=== PATIENT | male | born 1950 | race Two or more races ===

== ENCOUNTER 2019-02-04 18:09 | Emergency (ER) | payer MEDICARE ==
[~2019-02-04] VITALS: Ht 175.3 cm; Wt 97.5 kg
[2019-02-04] MEDS ORDERED: IV NORMAL SALINE 1000 ML BAG IV ONE (19:00)
[2019-02-04] MEDS ORDERED: IPRATROPIUM BROMIDE 0.5 MG/2.5 ML NEBU NEB ONE (19:00)
[2019-02-04] MEDS ORDERED: ALBUTEROL SULFATE 2.5 MG/3 ML NEBU NEB ONE (19:00)
[2019-02-04] MEDS ORDERED: ACETAMINOPHEN ES 500 MG TABLET PO ONE (19:00)
[2019-02-04] MEDS ORDERED: ALBUTEROL SULFATE 2.5 MG/3 ML NEBU ONE (19:05)
[2019-02-04] MEDS ORDERED: IPRATROPIUM BROMIDE 0.5 MG/2.5 ML NEBU ONE (19:05)
--- NOTE | 2019-02-04 19:09 | NUR ---
PATIENT WAS SEEN BY . HAND OFF REPORT GIVEN TO CHARLEEN PIERSON
--- NOTE | 2019-02-04 19:10 | NUR ---
Received report from Lexii PIERSON, assumed care of pt., pt. resting in bed, at bedside,
[2019-02-04] MEDS ORDERED: IBUPROFEN 800 MG TABLET PO ONE (19:15)
--- NOTE | 2019-02-04 19:20 | NUR ---
RT at bedside for breathing tx, Rad. tech. at bedside for CXR
[2019-02-04] MEDS ORDERED: IBUPROFEN 800 MG TABLET ONE (19:25)
[2019-02-04 19:29] LABS: BASOPHILS % (AUTO) 0.5 % (0.0-2.0); EOSINOPHILS # (AUTO) 0.1 K/uL (0.0-0.7); EOSINOPHILS % (AUTO) 1.8 % (0.0-7.0); HEMATOCRIT 44.8 % (36.7-47.1); HEMOGLOBIN 14.9 g/dL (12.5-16.3); LYMPHOCYTES # (AUTO) 0.9 K/uL (20.0-40.0); LYMPHOCYTES % (AUTO) 15.7 % (20.5-51.5); MEAN CORPUSCULAR HEMOGLOBIN 30.8 uug (23.8-33.4); MEAN CORPUSCULAR HGB CONC 33 g/dL (32.5-36.3); MEAN CORPUSCULAR VOLUME 92.8 fL (73.0-96.2); MONOCYTES # (AUTO) 0.9 K/uL (2.0-10.0); MONOCYTES % (AUTO) 15.5 % (0.0-11.0); NEUTROPHILS % (AUTO) 66.5 % (38.5-71.5); PLATELET COUNT (AUTO) 152 K/uL (152-348); RED BLOOD CELL COUNT(AUTO) 4.83 MIL/uL (4.06-5.63)
[2019-02-04 19:37] LABS: POTASSIUM 4.1 mmol/L (3.5-5.1)
[2019-02-04 19:45] LABS: BILIRUBIN,DIRECT 0.2 mg/dL (0.0-0.2); BILIRUBIN,TOTAL 1.1 mg/dL (0.2-1.0); TOTAL PROTEIN, SERUM 7.6 g/dL (6.4-8.2)
--- NOTE | 2019-02-04 19:55 | NUR ---
Urine specimen collected and sent to lab,
[2019-02-04 19:56] LABS: *BILIRUBIN,URIN NEGATIVE (NEGATIVE); *BLOOD, URINE NEGATIVE (NEGATIVE); *CLARITY,URINE CLEAR (CLEAR); *COLOR,URINE YELLOW (YELLOW); *KETONES,URINE NEGATIVE (NEGATIVE); *UROBILINOGEN,URINE 0.2 E.U./dl (NORMAL); LEUKOCYTE ESTERASE ,URINE NEGATIVE (NEGATIVE); NITRITE, URINE NEGATIVE (NEGATIVE); UGLUCOSE NEGATIVE (NEGATIVE)
[2019-02-04 19:57] LABS: BAND % (MANUAL) 7 % (0-10); NEUTROPHILS % (MANUAL) 61 % (42-75)
[2019-02-04 19:58] LABS: EOSINOPHILS % (MANUAL) 2 % (0-8); LYMPHOCYTES % (MANUAL) 16 % (20-40); MONOCYTES % (MANUAL) 14 % (2-10)
[2019-02-04 20:03] LABS: MUCUS,URINE FEW /LPF (0-FEW); RBC,URINE 0-3 /HPF (0-3); WBC,URINE NONE SEEN /HPF (0-3)
--- NOTE | 2019-02-04 20:37 | NUR ---
Patient discharged to home in stable conditon. Written and verbal after care instructions given. Patient verbalizes understanding of instructions. Pt. d/c w/ prescription per MD order, d/c papers signed, all belongings w/ pt., ID band removed, ambulated off unit w/ steady gait accompanied by , VSS, NAD
== END 2019-02-04 20:40 | disposition home or self-care (01) ==
LOC: ER 18:09
DX: J32.9 Chronic sinusitis, unspecified (principal); E78.5 Hyperlipidemia, unspecified; J45.909 Unspecified asthma, uncomplicated
CPT/HCPCS: 36415; 71045; 83605; 85025; 87040; 87086; 93005; A4663; J3590; J7030

== ENCOUNTER 2022-12-11 19:42 | Emergency (ER) | payer MEDICARE ==
[~2022-12-11] VITALS: Ht 175.3 cm; Wt 95.3 kg
--- NOTE | 2022-12-11 19:52 | NUR ---
Lab at bedside.
--- NOTE | 2022-12-11 19:52 | NUR ---
Chest Xray at bedside.
[2022-12-11 19:59] LABS: *BILIRUBIN,URIN NEGATIVE (NEGATIVE); *CLARITY,URINE CLEAR (CLEAR); *COLOR,URINE LIGHT YELLOW (YELLOW); *KETONES,URINE NEGATIVE (NEGATIVE); *UROBILINOGEN,URINE 0.2 E.U./dl (NORMAL); LEUKOCYTE ESTERASE ,URINE NEGATIVE (NEGATIVE); NITRITE, URINE NEGATIVE (NEGATIVE); PH,URINE 5.5 (5.0-8.0); UGLUCOSE NEGATIVE (NEGATIVE)
[2022-12-11 20:06] LABS: HEMATOCRIT 44.5 % (36.7-47.1); MEAN CORPUSCULAR HEMOGLOBIN 31.9 uug (23.8-33.4); MEAN CORPUSCULAR VOLUME 93.4 fL (73.0-96.2); PLATELET COUNT (AUTO) 224 K/uL (152-348)
[2022-12-11 20:17] LABS: *AMPHETAMINE, URINE NEGATIVE (NEGATIVE); *CANNABINOID, URINE NEGATIVE (NEGATIVE); *COCCAINE, URINE NEGATIVE (NEGATIVE); *PHENCYCLIDINE SCREEN,URINE NEGATIVE (NEGATIVE)
[2022-12-11 20:18] LABS: CREATININE 0.9 mg/dL (0.6-1.3); POTASSIUM 4.3 mmol/L (3.5-5.1)
[2022-12-11 20:24] LABS: *BLOOD, URINE TRACE (NEGATIVE)
[2022-12-11 20:31] LABS: BILIRUBIN,TOTAL 0.7 mg/dL (0.2-1.0); TOTAL PROTEIN, SERUM 7.7 g/dL (6.4-8.2)
--- NOTE | 2022-12-11 20:44 | NUR ---
Patient ambulated to the bathroom indepedently. Activity tolerated well.
[2022-12-11] MEDS ORDERED: LORAZEPAM 1 MG TABLET ONE (21:15)
[2022-12-11] MEDS ORDERED: LORAZEPAM 0.5 MG TABLET PO ONE (21:15)
--- NOTE | 2022-12-11 22:19 | NUR ---
Patient discharged to home in stable condition. Written and verbal after care instructions given. Patient verbalizes understanding of instructions. Stressed follow up or return to ER for worsening s/s.
[2022-12-11 22:20] VITALS: BP 120/66
[2022-12-11 22:45] LABS: BACTERIA,URINE NONE SEEN /HPF (NONE SEEN); RBC,URINE 0-3 /HPF (0-3); SQUAMOUS EPITHELIAL CELL,UR FEW /HPF (NONE SEEN); WBC,URINE 0-3 /HPF (0-3)
== END 2022-12-11 22:21 | disposition home or self-care (01) ==
LOC: ER 19:42
DX: R42 Dizziness and giddiness (principal); I10 Essential (primary) hypertension; R07.89 Other chest pain; J45.909 Unspecified asthma, uncomplicated; E78.5 Hyperlipidemia, unspecified; I25.10 Atherosclerotic heart disease of native coronary artery without angina pectoris
CPT/HCPCS: 36415; 71045; 83690; 84484; 85025; 93005; A4663